=== PATIENT | female | born 1940 | race Caucasian/White ===

== ENCOUNTER → 2017-02-14 | Outpatient (CLI) | payer MEDICARE, BC ==
--- NOTE | 2017-02-14 16:44 | CT ---
EXAMINATION TYPE: CT brain wo con DATE OF EXAM: 02/14/2017 COMPARISON: Previous study dated 4:15 6:15 HISTORY: Visual loss in left eye, half vision (one month ago) CT DLP: 1121 mGycm Automated exposure control for dose reduction was used. FINDINGS: There are mild, generalized changes of sulcal prominence and ventriculomegaly, compatible with mild a trophic change. There is diffuse periventricular white matter lucency, compatible with small vessel i schemic change. There is no acute focal lesion, mass effect or midline shift identified. I do not see evidence of intracranial blood. Utilized portions of the paranasal sinuses and mastoids are clear. The orbits appear normal. IMPRESSION: 1. NO ACUTE INTRACRANIAL ABNORMALITY. 2. MILD DEGENERATIVE CHANGE.
--- NOTE | 2017-02-15 09:10 | US ---
EXAMINATION TYPE: US carotid duplex BILAT DATE OF EXAM: 02/14/2017 COMPARISON: NONE CLINICAL HISTORY: 76-year-old female G45.9 TIA, R20.0 Anesthesia of skin. TECHNIQUE: Carotid duplex ultrasound examination. Indirect Doppler criteria was utilized. FINDINGS: Moderate atherosclerotic calcifications at the right bifurcation. EXAM MEASUREMENTS: RIGHT: Peak Systolic Velocity (PSV) cm/sec ----- Right CCA: 43.9 ----- Right ICA: 104.1 ----- Right ECA: 82.0 ICA/CCA ratio: 2.4 RIGHT: End Diastole cm/sec ----- Right CCA: 7.6 ----- Right ICA: 22.4 ----- Right ECA: 6.3 LEFT: Peak Systolic Velocity (PSV) cm/sec ----- Left CCA: 62.0 ----- Left ICA: 67.2 ----- Left ECA: 45.0 ICA/CCA ratio: 1.12 LEFT: End Diastole cm/sec ----- Left CCA: 12.5 ----- Left ICA: 17.6 ----- Left ECA: 0.0 VERTEBRALS (direction of flow): Right Vertebral: Antegrade Left Vertebral: Antegrade [employer] NOTES: No significant velocity elevations seen on left, on right there is a mild velocity increase with moderate plaque. IMPRESSION: Moderate atherosclerotic calcifications at the right bifurcation. Measurements suggest that there may be a mild proximal right ICA stenosis. No hemodynamically significant ICA stenosis appreciated on ei ther side. Criteria for Assigning % of Stenosis / Diameter reduction (Estimation based on the indirect measurements of the internal carotid artery velocities (ICA PSV). 1. Normal (no stenosis)=ICA PSV < 125 cm/s: ratio < 2.0: ICA EDV<40 cm/s. 2. Less than 50% stenosis=ICA PSV < 125 cm/s: ratio < 2.0: ICA EDV<40 cm/s. 3. 50 to 69% stenosis=ICA PSV of 125 to 230 cm/s: ration 2.0 ? 4.0: ICA EDV 40-100 cm/s. 4. Greater than 70% stenosis to near occlusion= ICA PSV > 230 cm/s: ratio > 4.0: ICA EDV > 100 cm/s. 5. Near occlusion= ICA PSV velocities may be low or undetectable: variable ratio and ICA EDV. 6. Total occlusion=unable to detect flow.
== END | disposition home or self-care (01) ==
LOC: RADUSMAIN 15:37
PROVIDERS: ATTEND Family Medicine
DX: G31.9 Degenerative disease of nervous system, unspecified (principal); I65.29 Occlusion and stenosis of unspecified carotid artery; R20.0 Anesthesia of skin; H53.47 Heteronymous bilateral field defects
CPT/HCPCS: 70450; 93880

== ENCOUNTER → 2017-03-22 | Outpatient (CLI) | payer MEDICARE, BC ==
--- NOTE | 2017-03-22 15:27 | MR ---
EXAMINATION TYPE: MR brain/cspine wo DATE OF EXAM: 03/22/2017 COMPARISON: CT brain February 14, 2017. HISTORY: Cervical spine radiculopathy and history of TIA per order. Left-sided vision changes per pat ient. Left-sided neck pain with pain or weakness in right arm per patient. TECHNIQUE: Multiplanar, multisequence imaging of the cervical spine, brain and brainstem are all perf ormed without IV contrast. FINDINGS: BRAIN: Diffusion weighted images demonstrate no evidence of a recent infarct or other diffusion abnormality. There is no worrisome extra-axial fluid collection. The ventricular system and cisternal spaces are normal in size and appearance. The brain volume is age appropriate. There are scattered foci of T2 h yperintensity seen throughout the deep and periventricular white matter. Lesions are nonspecific in a ppearance and distribution but most likely on basis of product of chronic small vessel ischemic gross e in patient this age. Midline structures demonstrate normal morphology. The craniocervical junction appears within normal limits. Normal vascular flow voids are present. There is 1.7 cm mucous retention cyst or polyp anteri melissa in the inferior right maxillary sinus otherwise paranasal sinuses are grossly clear. Nasal septu m is slightly deviated to right of midline. Both lenses are thinned in the globes. IMPRESSION: Mild to moderate chronic small vessel ischemic change. No evidence of a recent infarct. C-SPINE: FINDINGS: Sagittal images of the cervical spine show the craniocervical junction to appear within nor mal limits. The cervical and upper thoracic spinal cord is normal in course, caliber, and signal. V ertebral alignment is anatomic. The vertebral body heights are normal. There is mild disc space matheus rowing C5-C6 level. There is moderate disc space narrowing C6-C7 level. Mild to moderate spurring is present at these levels. There are posterior disc herniations at C4-C5 through C6-C7 levels effacing anterior thecal sac on sagittal images. The bone marrow signal intensity is within normal limits. Axial images show the C2-C3 level to appear within normal limits. Axial images at C3-C4 level show some left-sided uncovertebral facet degenerative changes and left fo raminal disc protrusion contributing to mild left-sided neural foraminal narrowing, right-sided neura l foramen is patent. Spinal canal is preserved. Axial images at C4-C5 level show focal central disc protrusion effacing anterior thecal sac nearly up to ventral surface of spinal cord on axial image 32, bilateral neural foramina are patent. Axial images at C5-C6 level show broad-based right paracentral disc protrusion effacing anterior thec al sac near axial image 25. There is uncovertebral facet degenerative changes, there is mild to moder ate right greater than left bilateral neural foraminal narrowing at this level identified. Axial images at C6-C7 level show broad-based central disc protrusion effacing anterior thecal sac wit h perhaps mild right-sided neural foraminal narrowing on axial image 19, effacing nearly up to ventra l surface of spinal cord is seen. Left-sided neural foramen is patent. Axial images at C7-T1 level are felt within normal limits. There is 5 mm T2 hypointense lesion left thyroid lobe on axial image 8 possible calcification. Thyroi d gland is overall small in size. IMPRESSION: Multilevel degenerative changes in the cervical spine most prominent at C4-C5 through C6- C7 levels as detailed above.
== END | disposition home or self-care (01) ==
LOC: RADMRIMAIN 13:02
PROVIDERS: ATTEND Psychiatry & Neurology Neurology
DX: M47.22 Other spondylosis with radiculopathy, cervical region (principal); I67.82 Cerebral ischemia; Z86.73 Personal history of transient ischemic attack (TIA), and cerebral infarction without residual deficits
CPT/HCPCS: 70551; 72141

== ENCOUNTER 2017-10-24 12:00 | Inpatient (IN) | payer MEDICARE, BC ==
[2017-10-24] MEDS ORDERED: SODIUM CHLORIDE 0.9% 1,000 ML IV STA ×2 (12:35→14:43)
--- NOTE | 2017-10-24 13:13 | ED ---
General Adult HPI - General Chief complaint: Abdominal Pain Stated complaint: Constipation Time Seen by Provider: 10/24/17 12:23 Source: patient, family, RN notes reviewed, old records reviewed Mode of arrival: ambulatory Limitations: no limitations - History of Present Illness Initial comments: This is a 77-year-old female to the ER for evaluation of abdominal pain. Patient has history of a few abdominal surgeries both hernia and mild hysterectomy, patient has not had a bowel movement for her own 10 days. She has had problem with decreased bowel movements but is currently having decreased appetite, decreased oral intake and complains of some abdominal pain and cramping. Patient denies any fevers - Related Data Home Medications Medication Instructions Recorded Confirmed Benazepril HCl 20 mg PO DAILY 10/24/17 10/24/17 Lovastatin [Mevacor] 40 mg PO HS 10/24/17 10/24/17 Magnesium Hydroxide [Milk of 2,400 mg PO HS PRN 10/24/17 10/24/17 Magnesia] Mupirocin 2% Oint [Bactroban 2% 1 applic TOPICAL BID 10/24/17 10/24/17 Oint] Psyllium Husk 100% [Metamucil 6 gm PO HS 10/24/17 10/24/17 Packet] amLODIPine [Norvasc] 5 mg PO DAILY 10/24/17 10/24/17 Allergies Allergy/AdvReac Type Severity Reaction Status Date / Time No Known Allergies Allergy Verified 10/24/17 12:26 Review of Systems ROS Statement: Those systems with pertinent positive or pertinent negative responses have been documented in the HPI. ROS Other: All systems not noted in ROS Statement are negative. Past Medical History Past Medical History: Cancer, Hypertension Additional Past Medical History / Comment(s): breast History of Any Multi-Drug Resistant Organisms: None Reported Past Surgical History: Breast Surgery, Hernia Repair Additional Past Surgical History / Comment(s): (L)nephrectomy, Breast Cancer left, hiatal hernia Past Psychological History: No Psychological Hx Reported Smoking Status: Never smoker Past Alcohol Use History: None Reported Past Drug Use History: None Reported - Past Family History Mother Family Medical History: Cancer Additional Family Medical History / Comment(s): colon cancer Father Additional Family Medical History / Comment(s): emphysema-non smoker General Exam Limitations: no limitations General appearance: alert, in no apparent distress Head exam: Present: atraumatic, normocephalic, normal inspection Eye exam: Present: normal appearance, PERRL, EOMI. Absent: scleral icterus, conjunctival injection, periorbital swelling ENT exam: Present: normal exam, mucous membranes moist Neck exam: Present: normal inspection. Absent: tenderness, meningismus, lymphadenopathy Respiratory exam: Present: normal lung sounds bilaterally. Absent: respiratory distress, wheezes, rales, rhonchi, stridor Cardiovascular Exam: Present: regular rate, normal rhythm, normal heart sounds. Absent: systolic murmur, diastolic murmur, rubs, gallop, clicks GI/Abdominal exam: Present: soft, distended, tenderness, normal bowel sounds. Absent: guarding, rebound, rigid Extremities exam: Present: normal inspection, full ROM, normal capillary refill. Absent: tenderness, pedal edema, joint swelling, calf tenderness Back exam: Present: normal inspection Neurological exam: Present: alert, oriented X3, CN II-XII intact Psychiatric exam: Present: normal affect, normal mood Skin exam: Present: warm, dry, intact, normal color. Absent: rash Course Vital Signs 10/24/17 10/24/17 10/24/17 12:08 15:00 16:57 Temperature 99.4 F 98.6 F Pulse Rate 92 61 55 L Respiratory 18 20 18 Rate Blood Pressure 125/75 147/67 O2 Sat by Pulse 96 97 98 Oximetry - Reevaluation(s) Reevaluation #1: Patient is without satisfactory bowel movement here in the ER, no significant pain Medical Decision Making - Medical Decision Making 68 female the ER for evaluation of left Sided abdominal pain positive diverticulitis, patient also suffered from constipation, will admit for further evaluation and treatment - Lab Data Result diagrams: 10/26/17 07:05 10/26/17 07:05 Lab Results 10/24/17 10/24/17 10/24/17 Range/Units 13:18 13:18 13:18 WBC 12.1 H (3.8-10.6) k/uL RBC 4.06 (3.80-5.40) m/uL Hgb 12.7 (11.4-16.0) gm/dL Hct 39.1 (34.0-46.0) % MCV 96.2 (80.0-100.0) fL MCH 31.2 (25.0-35.0) pg MCHC 32.4 (31.0-37.0) g/dL RDW 12.5 (11.5-15.5) % Plt Count 260 (150-450) k/uL Neutrophils % 85 % Lymphocytes % 6 % Monocytes % 8 % Eosinophils % 1 % Basophils % 0 % Neutrophils # 10.3 H (1.3-7.7) k/uL Lymphocytes # 0.7 L (1.0-4.8) k/uL Monocytes # 0.9 (0-1.0) k/uL Eosinophils # 0.1 (0-0.7) k/uL Basophils # 0.0 (0-0.2) k/uL Sodium 139 (137-145) mmol/L Potassium 4.3 (3.5-5.1) mmol/L Chloride 101 (98-107) mmol/L Carbon Dioxide 27 (22-30) mmol/L Anion Gap 11 mmol/L BUN 28 H (7-17) mg/dL Creatinine 1.10 H (0.52-1.04) mg/dL Est GFR (MDRD) Af Amer 58 (>60 ml/min/1.73 sqM) Est GFR (MDRD) Non-Af 48 (>60 ml/min/1.73 sqM) Glucose 113 H (74-99) mg/dL Plasma Lactic Acid Titi (0.7-2.0) mmol/L Calcium 9.1 (8.4-10.2) mg/dL Phosphorus 3.5 (2.5-4.5) mg/dL Magnesium 2.2 (1.6-2.3) mg/dL Total Bilirubin 1.0 (0.2-1.3) mg/dL AST 21 (14-36) U/L ALT 23 (9-52) U/L Alkaline Phosphatase 89 (38-126) U/L Total Creatine Kinase 102 (30-135) U/L CK-MB (CK-2) 1.9 (0.0-2.4) ng/mL CK-MB (CK-2) Rel Index 1.9 Total Protein 6.0 L (6.3-8.2) g/dL Albumin 3.4 L (3.5-5.0) g/dL Amylase 41 (30-110) U/L Lipase 88 (23-300) U/L Urine Color Urine Appearance (Clear) Urine pH (5.0-8.0) Ur Specific [place] (1.001-1.035) Urine Protein (Negative) Urine Glucose (UA) (Negative) Urine Ketones (Negative) Urine Blood (Negative) Urine Nitrite (Negative) Urine Bilirubin (Negative) Urine Urobilinogen (<2.0) mg/dL Ur Leukocyte Esterase (Negative) Urine RBC (0-5) /hpf Urine WBC (0-5) /hpf Ur Squamous Epith Cells (0-4) /hpf Hyaline Casts (0-2) /lpf Urine Mucus (None) /hpf 10/24/17 10/24/17 Range/Units 13:18 14:38 WBC (3.8-10.6) k/uL RBC (3.80-5.40) m/uL Hgb (11.4-16.0) gm/dL Hct (34.0-46.0) % MCV (80.0-100.0) fL MCH (25.0-35.0) pg MCHC (31.0-37.0) g/dL RDW (11.5-15.5) % Plt Count (150-450) k/uL Neutrophils % % Lymphocytes % % Monocytes % % Eosinophils % % Basophils % % Neutrophils # (1.3-7.7) k/uL Lymphocytes # (1.0-4.8) k/uL Monocytes # (0-1.0) k/uL Eosinophils # (0-0.7) k/uL Basophils # (0-0.2) k/uL Sodium (137-145) mmol/L Potassium (3.5-5.1) mmol/L Chloride (98-107) mmol/L Carbon Dioxide (22-30) mmol/L Anion Gap mmol/L BUN (7-17) mg/dL Creatinine (0.52-1.04) mg/dL Est GFR (MDRD) Af Amer (>60 ml/min/1.73 sqM) Est GFR (MDRD) Non-Af (>60 ml/min/1.73 sqM) Glucose (74-99) mg/dL Plasma Lactic Acid Titi 1.0 (0.7-2.0) mmol/L Calcium (8.4-10.2) mg/dL Phosphorus (2.5-4.5) mg/dL Magnesium (1.6-2.3) mg/dL Total Bilirubin (0.2-1.3) mg/dL AST (14-36) U/L ALT (9-52) U/L Alkaline Phosphatase (38-126) U/L Total Creatine Kinase (30-135) U/L CK-MB (CK-2) (0.0-2.4) ng/mL CK-MB (CK-2) Rel Index Total Protein (6.3-8.2) g/dL Albumin (3.5-5.0) g/dL Amylase (30-110) U/L Lipase (23-300) U/L Urine Color Yellow Urine Appearance Clear (Clear) Urine pH 5.5 (5.0-8.0) Ur Specific [place] 1.013 (1.001-1.035) Urine Protein Trace H (Negative) Urine Glucose (UA) Negative (Negative) Urine Ketones 1+ H (Negative) Urine Blood Negative (Negative) Urine Nitrite Negative (Negative) Urine Bilirubin Negative (Negative) Urine Urobilinogen <2.0 (<2.0) mg/dL Ur Leukocyte Esterase Small H (Negative) Urine RBC 2 (0-5) /hpf Urine WBC 16 H (0-5) /hpf Ur Squamous Epith Cells 2 (0-4) /hpf Hyaline Casts 4 H (0-2) /lpf Urine Mucus Few H (None) /hpf - Radiology Data Radiology results: report reviewed (Chest x-ray with abdominal surgeries negative, CT of abdomen and pelvis positive for diverticulitis), image reviewed Disposition Clinical Impression: Constipation, Acute diverticulitis Disposition: ADMITTED IP TO THIS [facility] Condition: Fair
--- NOTE | 2017-10-24 13:15 | XR ---
EXAMINATION TYPE: XR abdomen acute w cxr DATE OF EXAM: 10/24/2017 COMPARISON: NONE HISTORY: Constipation and abdominal pain for 1 week TECHNIQUE: Supine, upright, and frontal chest views of the abdomen and chest are obtained. FINDINGS: There is no evidence for pneumoperitoneum. There is a spinal curvature. Arthropathy noted in the bela ulders. No evident airspace disease within the chest. Cardiac mediastinal silhouette, pulmonary vascu larity and jake within normal limits accounting for patient rotation. Surgical clips present in the l eft axilla. Retained fecal debris noted throughout the distribution of the colon. No sizeable air fluid levels. No mass effects are seen. Degenerative disc changes are present in the visualized spine. Calcified gallstones are present in the right upper quadrant. Surgical clips present in the left para spinal location. Surgical clips are present in the left hemipelvis. Atheromatous calcifications are n oted incidentally. IMPRESSION: Correlate for fecal stasis. Postop change. Additional findings above.
[2017-10-24] MEDS ORDERED: RX INFO: IV CONTRAST WAS GIVEN 1 EACH MISC MISCELLANE PRN (13:27)
[2017-10-24 13:47] LABS: Albumin 3.4 g/dL (3.5-5.0); Calcium 9.1 mg/dL (8.4-10.2); Magnesium 2.2 mg/dL (1.6-2.3); Phosphorus 3.5 mg/dL (2.5-4.5); Potassium 4.3 mmol/L (3.5-5.1)
[2017-10-24 13:57] LABS: Basophils % (A) 0 %; Eosinophils # (A) 0.1 k/uL (0-0.7); Eosinophils % (A) 1 %; HCT 39.1 % (34.0-46.0); HGB 12.7 gm/dL (11.4-16.0); Lymphocytes # (A) 0.7 k/uL (1.0-4.8); Lymphocytes % (A) 6 %; MCH 31.2 pg (25.0-35.0); MCHC 32.4 g/dL (31.0-37.0); MCV 96.2 fL (80.0-100.0); Mean Platelet Volume 7.8; Monocytes # (A) 0.9 k/uL (0-1.0); Monocytes % (A) 8 %; Neutrophils # (A) 10.3 k/uL (1.3-7.7); Neutrophils % (A) 85 %; Platelet Count 260 k/uL (150-450); RBC 4.06 m/uL (3.80-5.40); RDW 12.5 % (11.5-15.5); WBC 12.1 k/uL (3.8-10.6)
[2017-10-24 14:08] LABS: Creatine Kinase MB 1.9 ng/mL (0.0-2.4)
[2017-10-24 14:48] LABS: Appearance,Urine Clear (Clear); Bilirubin,Urine Negative (Negative); Blood,Urine Negative (Negative); Color,Urine Yellow; Glucose,Urine (UA) Negative (Negative); Hyaline Casts,Urine 4 /lpf (0-2); Ketones,Urine 1+ (Negative); Leukocyte Esterase,Urine Small (Negative); Mucus,Urine Few /hpf; Nitrite,Urine Negative (Negative); PH, Urine 5.5 (5.0-8.0); Protein,Urine Trace (Negative); RBC,Urine 2 /hpf (0-5); Specific Gravity,Urine 1.013 (1.001-1.035); Squamous Epithelial Cell,Urine 2 /hpf (0-4); Urobilinogen,Urine <2.0 mg/dL (<2.0); WBC,Urine 16 /hpf (0-5)
--- NOTE | 2017-10-24 15:18 | CT ---
EXAMINATION TYPE: CT abdomen pelvis w con DATE OF EXAM: 10/24/2017 COMPARISON: NONE HISTORY: 77-year-old female Constipation x 1 week. TECHNIQUE: Contiguous axial scanning of the abdomen and pelvis following administration of 100 ml Omn ipaque 300 IV contrast. Delayed images through the kidneys and coronal/sagittal reconstructions perf ormed. CT DLP: 465.9 mGycm Automated exposure control for dose reduction was used. FINDINGS: Heart upper limits of normal in size without pericardial effusion. Postsurgical changes within the le ft breast likely relating to lumpectomy. Lung bases clear without pleural effusion. A couple hypodense lesions anterior left liver lobe, largest measuring 1.2 cm. These are too small fo r accurate CT characterization, probable cysts. No biliary ductal dilatation appreciated. Portal veno us system is patent. There is a small diverticulum of the second portion of the duodenum projecting i nto the pancreatic head region. Gallbladder is mildly hydropic measuring 4.4 cm wide and contains layering calculi measuring up to 1. 1 cm. Adrenal glands within normal limits. Patient is status post left nephrectomy. Right kidney, spleen, and atrophic pancreas show no gross abnormality. No dilated small bowel, free fluid, or free air. Moderate atherosclerotic calcifications within the abdominal aorta and iliac arteries. The some small bowel postsurgical changes in the mid and right abdomen anteriorly. Moderate to large stool burden. Mild free fluid in the left paracolic gutter and also within the pelv is. Surgical clips in the left side of the pelvis. Large amount of stool in the sigmoid colon and rectum. There appears to be an inflamed large diverticulum projecting upward from the proximal sigmoid, axial image 55 and coronal image 37. There is additional sigmoid diverticulosis with wall thickening and i nflammation extending to involve the distal sigmoid as well. No convincing abscess is seen though the re is extensive surrounding inflammatory fat stranding causing some limitation in assessment. Uterus surgically absent. Neither ovary is clearly identified. Bones: Degenerative disc disease within the visualized spine. No osseous destructive process. IMPRESSION: 1. SIGMOID DIVERTICULOSIS. THERE IS A LARGE INFLAMED DIVERTICULUM ALONG THE PROXIMAL SIGMOID WITH WAL L THICKENING AND SURROUNDING INFLAMMATION EXTENDING TO THE DISTAL SIGMOID WELL. FINDINGS SUGGEST A CUTE DIVERTICULITIS WITH MODERATE TO SEVERE INFLAMMATION. NO CONVINCING ABSCESS AT THIS TIME. NO EVID ENCE FOR FREE AIR. IF THERE IS NO IMPROVEMENT WITH MEDICAL MANAGEMENT, SHORT INTERVAL FOLLOW-UP CAN B E PERFORMED. RECOMMEND DIRECT VISUALIZATION AFTER SUCCESSFUL TREATMENT. 2. MILD LEFT UPPER QUADRANT AND PELVIC ASCITES ARE LIKELY REACTIVE. 3. MODERATE TO LARGE STOOL BURDEN. 4. CHOLELITHIASIS WITH MILDLY HYDROPIC GALLBLADDER. THIS LIKELY RELATES TO FASTING STATE. IF RIGHT UP PER QUADRANT PAIN OR CONCERN FOR EARLY ACUTE CHOLECYSTITIS, FOLLOW-UP ULTRASOUND OR HIDA SCAN. 5. PRIOR SMALL BOWEL RESECTIONS AND RE-ANASTOMOSES, SURGICAL CLIPS ALONG THE LEFT SIDE OF THE PELVIS, PRIOR LEFT NEPHRECTOMY, AND LEFT BREAST LUMPECTOMY.
[2017-10-24] MEDS ORDERED: SENNOSIDES-DOCUSATE SODIUM 1 EACH TAB PO STA (15:20)
[2017-10-24] MEDS ORDERED: LEVOFLOXACIN 750MG-D5W PMX 750 MG in DEXTROSE/WATER 1 150ML.BAG IVPB STA (15:36)
[2017-10-24] MEDS ORDERED: ONDANSETRON 4 MG/2 ML VIAL IVP PRN (15:36)
[2017-10-24] MEDS ORDERED: SODIUM CHLORIDE 0.9% 1,000 ML IV ONE (16:16)
[2017-10-24] MEDS: metroNIDAZOLE-NS PMX 500 MG in SALINE 1 100ML.BAG IVPB STA ×2 (17:35→18:06)
--- NOTE | 2017-10-24 18:59 | P.GSCN ---
History of Present Illness Consult date: 10/24/17 Reason for Consult: Abdominal pain History of present illness: Patient is known to our service from a history of previous breast cancer and also a colonic perforation approximately 16 years ago. Patient has some degree of dementia. She is not the best historian although the patient's 2 daughters are present to help with the history. The patient lives at home. She was having diarrhea up until proximally 7-10 days ago. She then took Imodium for the symptoms. Since that time she has had minimal if any stool output. She is passing a small volume of flatus. She passed gas earlier today. She felt more more bloated with increasing diffuse abdominal pain and went to the PCP with those complaints. She was sent to the hospital emergency department because of her abdominal examination. Denies fevers or chills. White blood cell count is 12. CAT scan abdomen and pelvis revealed constipation with some inflammatory changes in the proximal sigmoid colon where there is a prominent slightly larger than normal diverticulum with a thickened wall. The patient was admitted with diverticulitis as her primary diagnosis and constipation. She was given an enema while in the emergency department with some results. She appears relatively comfortable. Pain was more severe earlier. She believes her last colonoscopy was 10-15 years ago. Denies rectal bleeding or melena. Review of Systems The patient denies any acute changes in vision or hearing, no dysphagia or odynophagia, no chest pain or shortness of breath, no dysuria or hematuria, no headache, no runny nose, no rectal bleeding or melena, no unexplained weight loss Past Medical History Past Medical History: Cancer, Hyperlipidemia, Hypertension, Osteoarthritis (OA) , Pneumonia Additional Past Medical History / Comment(s): hx of lt breast cancer and lt kidney ca-sx and radiation . past fall 2014 fx nose(sx), constipation. History of Any Multi-Drug Resistant Organisms: None Reported Past Surgical History: Breast Surgery, Hernia Repair, Hysterectomy, Tonsillectomy Additional Past Surgical History / Comment(s): (L)nephrectomy, left breast lumpectomy, hiatal hernia, septoplasty,?bladder sx,varicose vein stripping, repair of perforated illeum, inc hernia repair w/ mesh. Past Anesthesia/Blood Transfusion Reactions: Motion Sickness, Postoperative Nausea & Vomiting (PONV) Additional Past Anesthesia/Blood Transfusion Reaction / Comm: after hernia sx pt coded coming out of sx-ended up on vent in icu for few days Smoking Status: Never smoker - Past Family History Mother Family Medical History: Cancer Additional Family Medical History / Comment(s): colon cancer Father Additional Family Medical History / Comment(s): emphysema-non smoker Medications and Allergies Home Medications and Allergies Comment(s): Physical exam: General: Well-developed, well-nourished, in no distress HEENT: Normocephalic, sclerae nonicteric Abdomen: Mild diffuse tenderness increase in the left lower quadrant, distention Extremities: No edema Neuro: Alert and oriented Home Medications Medication Instructions Recorded Confirmed Type Benazepril HCl 20 mg PO DAILY 10/24/17 10/24/17 History Lovastatin [Mevacor] 40 mg PO HS 10/24/17 10/24/17 History Magnesium Hydroxide [Milk of 2,400 mg PO HS PRN 10/24/17 10/24/17 History Magnesia] Mupirocin 2% Oint [Bactroban 2% 1 applic TOPICAL BID 10/24/17 10/24/17 History Oint] Psyllium Husk 100% [Metamucil 6 gm PO HS 10/24/17 10/24/17 History Packet] amLODIPine [Norvasc] 5 mg PO DAILY 10/24/17 10/24/17 History Allergies Allergy/AdvReac Type Severity Reaction Status Date / Time No Known Allergies Allergy Verified 10/24/17 12:26 Surgical - Exam Vital Signs Temp Pulse Resp BP Pulse Ox 99.4 F 92 18 125/75 96 10/24/17 12:08 10/24/17 12:08 10/24/17 12:08 10/24/17 12:08 10/24/17 12:08 Results - Labs 10/24/17 13:18 10/24/17 13:18 Abnormal Lab Results - Last 24 Hours (Table) 10/24/17 10/24/17 10/24/17 Range/Units 13:18 13:18 14:38 WBC 12.1 H (3.8-10.6) k/uL Neutrophils # 10.3 H (1.3-7.7) k/uL Lymphocytes # 0.7 L (1.0-4.8) k/uL BUN 28 H (7-17) mg/dL Creatinine 1.10 H (0.52-1.04) mg/dL Glucose 113 H (74-99) mg/dL Total Protein 6.0 L (6.3-8.2) g/dL Albumin 3.4 L (3.5-5.0) g/dL Urine Protein Trace H (Negative) Urine Ketones 1+ H (Negative) Ur Leukocyte Esterase Small H (Negative) Urine WBC 16 H (0-5) /hpf Hyaline Casts 4 H (0-2) /lpf Urine Mucus Few H (None) /hpf Diabetes panel 10/24/17 Range/Units 13:18 Sodium 139 (137-145) mmol/L Potassium 4.3 (3.5-5.1) mmol/L Chloride 101 (98-107) mmol/L Carbon Dioxide 27 (22-30) mmol/L BUN 28 H (7-17) mg/dL Creatinine 1.10 H (0.52-1.04) mg/dL Glucose 113 H (74-99) mg/dL Calcium 9.1 (8.4-10.2) mg/dL AST 21 (14-36) U/L ALT 23 (9-52) U/L Alkaline Phosphatase 89 (38-126) U/L Total Protein 6.0 L (6.3-8.2) g/dL Albumin 3.4 L (3.5-5.0) g/dL Calcium panel 10/24/17 Range/Units 13:18 Calcium 9.1 (8.4-10.2) mg/dL Phosphorus 3.5 (2.5-4.5) mg/dL Albumin 3.4 L (3.5-5.0) g/dL Pituitary panel 10/24/17 Range/Units 13:18 Sodium 139 (137-145) mmol/L Potassium 4.3 (3.5-5.1) mmol/L Chloride 101 (98-107) mmol/L Carbon Dioxide 27 (22-30) mmol/L BUN 28 H (7-17) mg/dL Creatinine 1.10 H (0.52-1.04) mg/dL Glucose 113 H (74-99) mg/dL Calcium 9.1 (8.4-10.2) mg/dL Adrenal panel 10/24/17 Range/Units 13:18 Sodium 139 (137-145) mmol/L Potassium 4.3 (3.5-5.1) mmol/L Chloride 101 (98-107) mmol/L Carbon Dioxide 27 (22-30) mmol/L BUN 28 H (7-17) mg/dL Creatinine 1.10 H (0.52-1.04) mg/dL Glucose 113 H (74-99) mg/dL Calcium 9.1 (8.4-10.2) mg/dL Total Bilirubin 1.0 (0.2-1.3) mg/dL AST 21 (14-36) U/L ALT 23 (9-52) U/L Alkaline Phosphatase 89 (38-126) U/L Total Protein 6.0 L (6.3-8.2) g/dL Albumin 3.4 L (3.5-5.0) g/dL Assessment and Plan (1) Acute diverticulitis Narrative/Plan: Clinical scenario discussed in detail with the patient and her daughters. The CAT scan films were shown to them. I also discussed this consult with Dr. Vargas will be resuming coverage tomorrow. Continue nothing by mouth except for ice chips and popsicles. Encouraged increase ambulation. No cathartics or further enemas at this time. Continue broad-spectrum antibiotics. Advise colonoscopy in 6-8 weeks assuming the patient improves clinically. Current Visit: Yes Status: Acute Code(s): K57.92 - DVTRCLI OF INTEST, PART UNSP, W/O PERF OR ABSCESS W/O BLEED SNOMED Code(s): 235705834
[2017-10-24] MEDS: ATORVASTATIN 10 MG TAB PO SCH (21:21)
[2017-10-24] MEDS: amLODIPine 5 MG TAB PO SCH (21:21)
[2017-10-24] MEDS: LISINOPRIL 20 MG TAB PO SCH (21:21)
[2017-10-25] MEDS: MUPIROCIN 2% OINT 22 GM TUBE TOPICAL SCH ×3 (00:47→20:35)
[2017-10-25] MEDS: metroNIDAZOLE-NS PMX 500 MG in SALINE 1 100ML.BAG IVPB SCH ×3 (01:03→15:00)
[2017-10-25 07:20] LABS: Basophils % (A) 0 %; Eosinophils # (A) 0.1 k/uL (0-0.7); Eosinophils % (A) 1 %; HCT 37.4 % (34.0-46.0); Lymphocytes # (A) 0.8 k/uL (1.0-4.8); Lymphocytes % (A) 8 %; MCH 30.7 pg (25.0-35.0); MCV 95.9 fL (80.0-100.0); Mean Platelet Volume 7.5; Monocytes # (A) 0.8 k/uL (0-1.0); Monocytes % (A) 8 %; Neutrophils # (A) 8.3 k/uL (1.3-7.7); Neutrophils % (A) 81 %; Platelet Count 244 k/uL (150-450); RDW 12.5 % (11.5-15.5); WBC 10.3 k/uL (3.8-10.6)
[2017-10-25 07:43] LABS: Anion Gap 9 mmol/L; Blood Urea Nitrogen 14 mg/dL (7-17); Calcium 8.7 mg/dL (8.4-10.2); Carbon Dioxide 27 mmol/L (22-30); Chloride 104 mmol/L (98-107); Glucose 84 mg/dL (74-99); Potassium 4.2 mmol/L (3.5-5.1); Sodium 140 mmol/L (137-145)
[2017-10-25] MEDS: LISINOPRIL 20 MG TAB PO SCH (08:36)
[2017-10-25] MEDS: amLODIPine 5 MG TAB PO SCH (08:36)
[2017-10-25] MEDS: PANTOPRAZOLE 40 MG/10 ML VIAL IVP SCH (09:19)
[2017-10-25] MEDS: ENOXAPARIN 40 MG/0.4 ML SYRINGE SQ SCH (09:19)
--- NOTE | 2017-10-25 12:01 | P.PN ---
Subjective Progress Note Date: 10/25/17 Principal diagnosis: Diverticulitis The patient is a 77-year-old female admitted with diverticulitis found on CT. No previous episodes of diverticulitis. No colonoscopy for greater than 10 years. The patient was examined in the patient's daughter was at bedside. The patient had been having diarrhea up to about a week ago. She then took some Imodium. She's had constipation since that time. SHe did have a bowel movement yesterday with a enema. Feeling better today. No nausea or vomiting. Objective - Vital Signs Vital signs: Vital Signs Temp 98.5 F 10/25/17 08:34 Pulse 64 10/25/17 08:34 Resp 16 10/25/17 08:34 BP 166/72 10/25/17 08:34 Pulse Ox 95 10/25/17 08:34 Intake & Output 10/24/17 10/25/17 10/25/17 18:59 06:59 18:59 Intake Total 510 Balance 510 Weight 63.095 kg 63.095 kg Intake: Intake, IV Titration 500 Amount Sodium Chloride 0.9% 1, 500 000 ml @ 100 mls/hr IV . Q10H ONE Rx#:[id number] Oral 10 Other: Voiding Method Toilet Toilet # Voids 3 1 # Bowel Movements 0 - Constitutional General appearance: Present: cooperative, no acute distress - EENT ENT: Present: hearing grossly normal - Respiratory Respiratory: bilateral: CTA - Cardiovascular Rhythm: regular - Gastrointestinal General gastrointestinal: Present: distended (Softly distended), normal bowel sounds, tenderness (Minimal left lower quadrant without guarding, rebound, peritoneal signs or mass) - Labs CBC & Chem 7: 10/25/17 06:48 10/25/17 06:48 Labs: Abnormal Lab Results - Last 24 Hours (Table) 10/24/17 10/24/17 10/24/17 Range/Units 13:18 13:18 14:38 WBC 12.1 H (3.8-10.6) k/uL Neutrophils # 10.3 H (1.3-7.7) k/uL Lymphocytes # 0.7 L (1.0-4.8) k/uL BUN 28 H (7-17) mg/dL Creatinine 1.10 H (0.52-1.04) mg/dL Glucose 113 H (74-99) mg/dL Total Protein 6.0 L (6.3-8.2) g/dL Albumin 3.4 L (3.5-5.0) g/dL Urine Protein Trace H (Negative) Urine Ketones 1+ H (Negative) Ur Leukocyte Esterase Small H (Negative) Urine WBC 16 H (0-5) /hpf Hyaline Casts 4 H (0-2) /lpf Urine Mucus Few H (None) /hpf 10/25/17 Range/Units 06:48 WBC (3.8-10.6) k/uL Neutrophils # 8.3 H (1.3-7.7) k/uL Lymphocytes # 0.8 L (1.0-4.8) k/uL BUN (7-17) mg/dL Creatinine (0.52-1.04) mg/dL Glucose (74-99) mg/dL Total Protein (6.3-8.2) g/dL Albumin (3.5-5.0) g/dL Urine Protein (Negative) Urine Ketones (Negative) Ur Leukocyte Esterase (Negative) Urine WBC (0-5) /hpf Hyaline Casts (0-2) /lpf Urine Mucus (None) /hpf Microbiology - Last 24 Hours (Table) 10/24/17 14:38 Urine Culture - Preliminary Urine,Voided - Imaging and Cardiology CT scan - abdomen: report reviewed, image reviewed Assessment and Plan (1) Acute diverticulitis Current Visit: Yes Status: Acute Code(s): K57.92 - DVTRCLI OF INTEST, PART UNSP, W/O PERF OR ABSCESS W/O BLEED SNOMED Code(s): 013084402 (2) Constipation Current Visit: Yes Status: Acute Code(s): K59.00 - CONSTIPATION, UNSPECIFIED SNOMED Code(s): 10761588 Plan: The patient feels better today. The daughter thinks her mother appears much more comfortable. We'll start her on some clear liquids. Continue the IV antibiotics. Serial exams. If she is doing well, was we will advance her diet tomorrow. Will likely need a colonoscopy in 6-8 weeks.
[2017-10-25] MEDS ORDERED: IBUPROFEN 600 MG TAB PO PRN (13:32)
--- NOTE | 2017-10-25 14:14 | P.HPIM ---
History of Present Illness H&P Date: 10/25/17 Chief Complaint: Abdominal pain, constipation 77-year-old female who presented to the emergency room with a chief complaint of abdominal pain and constipation. The patient was having diarrhea about a week and at that time she took antidiarrheals. She began to get constipated and was unable to have a bowel movement for several days. She went to her PCP, Dr. Calderón, earlier this week and was prescribed a few different medications for constipation. The patient states her abdominal pain increased her severity and she decided to come to the ER for evaluation. Denies shortness of breath or cough. Denies chest pain or pressure. Denies nausea or vomiting. Denies fever or chills. The patient has a history of left breast cancer and left kidney cancer, hyperlipidemia, hypertension, and osteoarthritis. Acute abdominal series: Correlate for fecal stasis CT of abdomen and pelvis: Sigmoid diverticulosis, large inflamed diverticulum along the proximal sigmoid with wall thickening and surrounding inflammation extending to the distal sigmoid as well. Findings suggest acute diverticulitis with moderate to severe inflammation. Mild left upper quadrant and pelvic ascites are likely reactive. Moderate to large stool burden. Cholelithiasis with mildly hydropic gallbladder. Laboratory data: WBC 12.1. Hemoglobin 12.7. Platelet count 244. Sodium 139. Potassium 4.3. BUN 28. Creatinine 1.1. Lactic acid: 1.0 Urinalysis reveals: Trace proteinuria, 1+ ketonuria, small leukocyte esterase The patient was admitted to the hospital under the care of Dr. Calderón. Consultations were placed to general surgery. Review of Systems GENERAL: Patient denies fever. Denies chills. EYES: Denies blurred vision. Denies vision changes. Denies eye pain. EARS, NOSE, MOUTH, & THROAT: Denies headache. Denies sore throat. Denies ear pain. RESPIRATORY: Denies cough. Denies shortness of breath. Denies sputum production. Denies hemoptysis. CARDIOVASCULAR: Denies chest pain or pressure. Denies palpitations. Denies arrhythmias. GASTROINTESTINAL: Positive for abdominal pain. Positive for constipation. Denies nausea. Denies vomiting. Denies heartburn. Denies blood in the stool. GENITOURINARY: Denies urinary frequency. Denies burning. Denies dysuria. Denies cloudy urine. Denies blood in the urine. MUSCULOSKELETAL: Denies myalgias. Denies joint swelling. Denies decreased range of motion beyond patients baseline. INTEGUMENTARY: Denies pruitis. Denies rash. PSYCHIATRIC: Denies suicidal or homicial ideations. ENDOCRINE: Denies weight change. Denies polydipsia. Denies polyuria. HEMATOLOGIC: Denies bleeding disorders. Past Medical History Past Medical History: Cancer, Hyperlipidemia, Hypertension, Osteoarthritis (OA) , Pneumonia Additional Past Medical History / Comment(s): hx of lt breast cancer and lt kidney ca-sx and radiation . past fall 2014 fx nose(sx), constipation. History of Any Multi-Drug Resistant Organisms: None Reported Past Surgical History: Breast Surgery, Hernia Repair, Hysterectomy, Tonsillectomy Additional Past Surgical History / Comment(s): (L)nephrectomy, left breast lumpectomy, hiatal hernia, septoplasty,?bladder sx,varicose vein stripping, repair of perforated illeum, inc hernia repair w/ mesh. Past Anesthesia/Blood Transfusion Reactions: Motion Sickness, Postoperative Nausea & Vomiting (PONV) Additional Past Anesthesia/Blood Transfusion Reaction / Comment(s): after hernia sx pt coded coming out of sx-ended up on vent in icu for few days Smoking Status: Never smoker - Past Family History Mother Family Medical History: Cancer Additional Family Medical History / Comment(s): colon cancer Father Additional Family Medical History / Comment(s): emphysema-non smoker Medications and Allergies Home Medications Medication Instructions Recorded Confirmed Type Benazepril HCl 20 mg PO DAILY 10/24/17 10/24/17 History Lovastatin [Mevacor] 40 mg PO HS 10/24/17 10/24/17 History Magnesium Hydroxide [Milk of 2,400 mg PO HS PRN 10/24/17 10/24/17 History Magnesia] Mupirocin 2% Oint [Bactroban 2% 1 applic TOPICAL BID 10/24/17 10/24/17 History Oint] Psyllium Husk 100% [Metamucil 6 gm PO HS 10/24/17 10/24/17 History Packet] amLODIPine [Norvasc] 5 mg PO DAILY 10/24/17 10/24/17 History Allergies Allergy/AdvReac Type Severity Reaction Status Date / Time No Known Allergies Allergy Verified 10/24/17 12:26 Physical Exam Vitals: Vital Signs Temp Pulse Pulse Pulse Resp BP BP 10/25/17 08:34 98.5 F 64 16 166/72 10/25/17 08:00 16 10/25/17 01:39 98.4 F 74 16 141/74 10/25/17 00:00 76 16 10/24/17 20:52 98.4 F 61 16 167/72 10/24/17 17:30 97.8 F 65 16 178/79 10/24/17 16:57 98.6 F 55 L 18 10/24/17 15:00 61 20 147/67 Pulse Ox 10/25/17 08:34 95 10/25/17 08:00 10/25/17 01:39 95 10/25/17 00:00 10/24/17 20:52 98 10/24/17 17:30 100 10/24/17 16:57 98 10/24/17 15:00 97 Intake and Output 10/24/17 10/25/17 10/25/17 22:59 06:59 14:59 Intake Total 300 210 Balance 300 210 Intake: Intake, IV Titration 300 200 Amount Sodium Chloride 0.9% 1, 300 200 000 ml @ 100 mls/hr IV . Q10H ONE Rx#:[id number] Oral 10 Other: Voiding Method Toilet Toilet # Voids 3 1 # Bowel Movements 0 Weight 63.095 kg Patient Weight 10/26/17 06:59 Weight 63.095 kg GENERAL: This is a 77-year-old female in no apparent distress at the time of examination. Pleasant and cooperative. HEENT: Head is atraumatic, normocephalic. Pupils are equal, round, and reactive to light. Sclerae anicteric. Conjunctivae are clear. Mucus membranes of the mouth are moist. Neck is supple. RESPIRATORY: Clear to ausculation. No wheezes, rales, or rhonchi. No use of accessory muscles. Patient maintaining oxygen saturation greater than 92%. No chest wall tenderness is noted on palpation or with deep breathing. CARDIOVASCULAR: Regular rate and rhythm. S1 and S2 noted. No systolic or diastolic murmur auscultated. No JVD noted. No S3 or S4 noted. GASTROINTESTINAL: Abdomen distended but soft. Bowel sounds auscultated x 4 quadrants. Slight pain or tenderness noted upon palpation. INTEGUMENTARY: No cyanosis. No jaundice. No rashes noted. No cellulitis noted. EXTREMITIES: 2+ peripheral pulses. No evidence of peripheral edema. No calf tenderness noted. NEUROLOGIC: Cranial nerves II-XII intact. PSYCHIATRIC: Awake, alert, and oriented X 3. Appropriate affect. Intact judgement and insight. Results CBC & Chem 7: 10/25/17 06:48 10/25/17 06:48 Labs: Abnormal Lab Results - Last 24 Hours (Table) 10/24/17 10/24/17 10/24/17 Range/Units 13:18 13:18 14:38 WBC 12.1 H (3.8-10.6) k/uL Neutrophils # 10.3 H (1.3-7.7) k/uL Lymphocytes # 0.7 L (1.0-4.8) k/uL BUN 28 H (7-17) mg/dL Creatinine 1.10 H (0.52-1.04) mg/dL Glucose 113 H (74-99) mg/dL Total Protein 6.0 L (6.3-8.2) g/dL Albumin 3.4 L (3.5-5.0) g/dL Urine Protein Trace H (Negative) Urine Ketones 1+ H (Negative) Ur Leukocyte Esterase Small H (Negative) Urine WBC 16 H (0-5) /hpf Hyaline Casts 4 H (0-2) /lpf Urine Mucus Few H (None) /hpf 10/25/17 Range/Units 06:48 WBC (3.8-10.6) k/uL Neutrophils # 8.3 H (1.3-7.7) k/uL Lymphocytes # 0.8 L (1.0-4.8) k/uL BUN (7-17) mg/dL Creatinine (0.52-1.04) mg/dL Glucose (74-99) mg/dL Total Protein (6.3-8.2) g/dL Albumin (3.5-5.0) g/dL Urine Protein (Negative) Urine Ketones (Negative) Ur Leukocyte Esterase (Negative) Urine WBC (0-5) /hpf Hyaline Casts (0-2) /lpf Urine Mucus (None) /hpf Microbiology - Last 24 Hours (Table) 10/24/17 14:38 Urine Culture - Preliminary Urine,Voided Thrombosis Risk Factor Assmnt - Choose All That Apply Any of the Below Risk Factors Present?: Yes Other Risk Factors: Yes Each Risk Factor Represents 2 Points: Malignancy Each Risk Factor Represents 3 Points: Age 75 years or older Other congenital or acquired thrombophilia - If yes, enter type in comment: No Thrombosis Risk Factor Assessment Total Risk Factor Score: 5 Thrombosis Risk Factor Assessment Level: High Risk Assessment and Plan Plan: ASSESSMENT: Acute diverticulitis, present on admission Abdominal pain secondary to constipation and diverticulitis History of diverticulosis Asymptomatic bacteruria, culture pending Essential hypertension Hyperlipidemia History of left breast and left kidney cancer PLAN: General surgery on consult. Appreciate recommendations and input Continue Levaquin and Flagyl Patient started on clear liquids today per surgery Await results of urine culture Home meds as appropriate Monitor labs Activity as tolerated GI prophylaxis: Protonix 40 mg IV Daily DVT prophylaxis: Lovenox 40mg Subcu daily Monitor vital signs and address as appropriate Discharge planning: Patient to return home when stable Further recommendations pending patient's course Nurse practitioner note has been reviewed by physician. Signing provider agrees with the documented findings, assessment, and plan of care.
[2017-10-25] MEDS: ACETAMINOPHEN TAB 325 MG TAB PO PRN (14:57)
[2017-10-25] MEDS: SODIUM CHLORIDE 0.9% 1,000 ML IV SCH (14:57)
[2017-10-25] MEDS: LEVOFLOXACIN 750MG-D5W PMX 750 MG in DEXTROSE/WATER 1 150ML.BAG IVPB SCH (16:08)
[2017-10-25] MEDS ORDERED: LEVOFLOXACIN 750MG-D5W PMX 750 MG in DEXTROSE/WATER 1 150ML.BAG IVPB SCH (18:00)
[2017-10-25] MEDS: ATORVASTATIN 10 MG TAB PO SCH (20:34)
[2017-10-26] MEDS: NYSTATIN 100,000 UNIT/ML SUSP 500,000 UNIT/5 ML CUP PO SCH ×5 (01:16→21:33)
[2017-10-26] MEDS: metroNIDAZOLE-NS PMX 500 MG in SALINE 1 100ML.BAG IVPB SCH ×3 (01:19→15:18)
[2017-10-26] MEDS: SODIUM CHLORIDE 0.9% 1,000 ML IV SCH ×2 (05:27→12:14)
[2017-10-26 07:40] LABS: Anion Gap 9 mmol/L; Blood Urea Nitrogen 11 mg/dL (7-17); Calcium 8.6 mg/dL (8.4-10.2); Carbon Dioxide 26 mmol/L (22-30); Chloride 104 mmol/L (98-107); Glucose 89 mg/dL (74-99); Potassium 3.7 mmol/L (3.5-5.1); Sodium 139 mmol/L (137-145)
[2017-10-26 07:55] LABS: Basophils % (A) 0 %; Eosinophils # (A) 0.1 k/uL (0-0.7); Eosinophils % (A) 2 %; HCT 38.8 % (34.0-46.0); HGB 12.4 gm/dL (11.4-16.0); Lymphocytes # (A) 0.9 k/uL (1.0-4.8); Lymphocytes % (A) 9 %; MCH 30.5 pg (25.0-35.0); MCHC 31.9 g/dL (31.0-37.0); MCV 95.7 fL (80.0-100.0); Mean Platelet Volume 7.5; Monocytes # (A) 0.7 k/uL (0-1.0); Monocytes % (A) 7 %; Neutrophils # (A) 7.6 k/uL (1.3-7.7); Neutrophils % (A) 81 %; Platelet Count 247 k/uL (150-450); RBC 4.05 m/uL (3.80-5.40); RDW 12.3 % (11.5-15.5); WBC 9.5 k/uL (3.8-10.6)
[2017-10-26] MEDS: MUPIROCIN 2% OINT 22 GM TUBE TOPICAL SCH ×2 (08:11→21:32)
[2017-10-26] MEDS: PANTOPRAZOLE 40 MG/10 ML VIAL IVP SCH (08:11)
[2017-10-26] MEDS: amLODIPine 5 MG TAB PO SCH (08:11)
[2017-10-26] MEDS: ENOXAPARIN 40 MG/0.4 ML SYRINGE SQ SCH (08:12)
[2017-10-26] MEDS: LISINOPRIL 20 MG TAB PO SCH (08:12)
--- NOTE | 2017-10-26 09:19 | P.PN ---
Subjective Progress Note Date: 10/26/17 Principal diagnosis: Diverticulitis The patient is seen on rounds. She is still having some intermittent lower abdominal pain. Passing some gas. Had a very small BM yesterday. She is taking some clear liquids, she still does not have much of an appetite so only took small amounts. At this point she does not want any more to eat. She is bloating easily. Objective - Vital Signs Vital signs: Vital Signs Temp 98.5 F 10/26/17 06:39 Pulse 64 10/26/17 06:39 Resp 16 10/26/17 06:59 BP 168/81 10/26/17 06:39 Pulse Ox 93 L 10/26/17 06:39 Intake & Output 10/25/17 10/26/17 10/26/17 18:59 06:59 18:59 Intake Total 100 Balance 100 Weight 63.095 kg 63.095 kg Intake: Oral 100 Other: Voiding Method Toilet Toilet # Voids 1 1 # Bowel Movements 2 2 - Constitutional General appearance: Present: cooperative, no acute distress - Respiratory Respiratory: bilateral: CTA - Cardiovascular Rhythm: regular - Gastrointestinal General gastrointestinal: Present: distended (And tympanitic. Slightly more distended than yesterday.), normal bowel sounds, tenderness (Across the lower abdomen. No peritoneal signs.) - Labs CBC & Chem 7: 10/26/17 07:05 10/26/17 07:05 Labs: Abnormal Lab Results - Last 24 Hours (Table) 10/26/17 Range/Units 07:05 Lymphocytes # 0.9 L (1.0-4.8) k/uL Microbiology - Last 24 Hours (Table) 10/24/17 14:38 Urine Culture - Final Urine,Voided Assessment and Plan (1) Acute diverticulitis Current Visit: Yes Status: Acute Code(s): K57.92 - DVTRCLI OF INTEST, PART UNSP, W/O PERF OR ABSCESS W/O BLEED SNOMED Code(s): 784553629 (2) Constipation Current Visit: Yes Status: Acute Code(s): K59.00 - CONSTIPATION, UNSPECIFIED SNOMED Code(s): 68203133 Plan: She is slowly improving. She's not having any fevers and the white count is normal. Her abdomen is fairly distended and she does not appetite so we will keep her on clear liquids today. Continue IV antibiotics. We'll give her a suppository to gently try to stimulate the bowel from below. Anticipate another couple of days before she is ready for discharge. Progressing slowly
[2017-10-26] MEDS ORDERED: BISACODYL 10 MG SUPP RECTAL STA (09:21)
[2017-10-26] MEDS: ACETAMINOPHEN TAB 325 MG TAB PO PRN (13:46)
[2017-10-26] MEDS: LEVOFLOXACIN 750MG-D5W PMX 750 MG in DEXTROSE/WATER 1 150ML.BAG IVPB SCH (16:18)
--- NOTE | 2017-10-26 17:43 | PN ---
PROGRESS NOTE DATE OF SERVICE: 10/26/2017 Patient resting comfortably in bed, claims her abdomen is slightly more distended compared to yesterday, but there is no abdominal pain. She has been has been passing gas and she did have a small bowel movement yesterday. She is taking clear liquids without any abdominal pain, but she does not have much of an appetite. VITAL SIGNS: Temperature 98.5, pulse 64, respirations 16, blood pressure 168/81, O2 saturation 93%. HEENT: Atraumatic, normocephalic. Pupils equal and reactive to light. Extraocular movements intact. Buccal mucosa is fair. Neck is supple. No goiter or lymphadenopathy. Abdomen is soft, but distended. Bowel sounds are positive and there is no tenderness. No guarding or rigidity. EXTREMITIES: No edema, clubbing, cyanosis. NEUROLOGICAL: Cranial nerves 2-12 grossly intact. No gross motor or sensory deficit. LABS: CBC: White blood count of 9.5, hemoglobin 12.4, hematocrit 38.8 and platelet count of 247. Chemical profile: Sodium 139, potassium 3.7, chloride 104, bicarb 26, BUN 11, creatinine of 0.73, and glucose 89. ASSESSMENT: 1. Acute diverticulitis. 2. Abdominal pain secondary to diverticulitis and constipation. 3. Abdominal distention, rule out bowel obstruction. 4. Asymptomatic bacteriuria. Cultures pending. 5. Essential hypertension. 6. Hyperlipidemia. The patient the patient remains on a clear liquid diet, which she is tolerating well, not causing her any abdominal pain and not eating much secondary to no appetite. Otherwise, remains stable on Levaquin and Flagyl. The patient's abdominal distention subjectively is worse compared to yesterday. The patient will be monitored closely and if it continues to get worse, then we will check abdominal x-ray. Urine culture shows about 10,000-49,000 of genital mandie. No further recommendations for treatment of UTI. We will continue to monitor I's and O's, renal function, electrolytes. Continue with GI and DVT prophylaxis. Continue current treatment. Discharge when clinically stable. MMODL / IJN: [id number] /
[2017-10-26] MEDS: ATORVASTATIN 10 MG TAB PO SCH (21:28)
[2017-10-27] MEDS: metroNIDAZOLE-NS PMX 500 MG in SALINE 1 100ML.BAG IVPB SCH ×2 (01:15→09:18)
[2017-10-27] MEDS: SODIUM CHLORIDE 0.9% 1,000 ML IV SCH (06:09)
[2017-10-27 06:56] LABS: Basophils % (A) 0 %; Eosinophils # (A) 0.3 k/uL (0-0.7); Eosinophils % (A) 3 %; HCT 41.7 % (34.0-46.0); HGB 12.7 gm/dL (11.4-16.0); Lymphocytes # (A) 0.8 k/uL (1.0-4.8); Lymphocytes % (A) 9 %; MCH 29.9 pg (25.0-35.0); MCHC 30.5 g/dL (31.0-37.0); MCV 98.3 fL (80.0-100.0); Mean Platelet Volume 7.5; Monocytes # (A) 0.6 k/uL (0-1.0); Monocytes % (A) 7 %; Neutrophils % (A) 78 %; Platelet Count 280 k/uL (150-450); RBC 4.24 m/uL (3.80-5.40); RDW 12.5 % (11.5-15.5); WBC 8.9 k/uL (3.8-10.6)
[2017-10-27 07:13] LABS: Anion Gap 12 mmol/L; Blood Urea Nitrogen 10 mg/dL (7-17); Calcium 8.8 mg/dL (8.4-10.2); Carbon Dioxide 27 mmol/L (22-30); Chloride 102 mmol/L (98-107); Glucose 111 mg/dL (74-99); Potassium 3.6 mmol/L (3.5-5.1); Sodium 141 mmol/L (137-145)
[2017-10-27] MEDS: LISINOPRIL 20 MG TAB PO SCH (09:15)
[2017-10-27] MEDS: PANTOPRAZOLE 40 MG/10 ML VIAL IVP SCH (09:15)
[2017-10-27] MEDS: ENOXAPARIN 40 MG/0.4 ML SYRINGE SQ SCH (09:15)
[2017-10-27] MEDS: NYSTATIN 100,000 UNIT/ML SUSP 500,000 UNIT/5 ML CUP PO SCH ×4 (09:16→21:29)
[2017-10-27] MEDS: MUPIROCIN 2% OINT 22 GM TUBE TOPICAL SCH ×2 (09:16→21:29)
[2017-10-27] MEDS: amLODIPine 5 MG TAB PO SCH (09:27)
--- NOTE | 2017-10-27 09:58 | P.PN ---
Subjective Progress Note Date: 10/27/17 Principal diagnosis: Diverticulitis The patient is feeling better today. Would like more to eat. Is having less pain. Passing some gas and had a bowel movement. Wants to walk more, but feels a little unsteady. Says she uses a walker at home. Objective - Vital Signs Vital signs: Vital Signs Temp 97.9 F 10/27/17 09:13 Pulse 73 10/27/17 08:10 Resp 20 10/27/17 08:10 BP 147/85 10/27/17 08:10 Pulse Ox 97 10/27/17 08:10 Intake & Output 10/26/17 10/27/17 10/27/17 18:59 06:59 18:59 Intake Total 650 Balance 650 Weight 67 kg 67 kg Intake: Oral 650 Other: Voiding Method Toilet # Voids 2 2 # Bowel Movements 1 - Constitutional General appearance: Present: cooperative, no acute distress - Respiratory Respiratory: bilateral: CTA - Cardiovascular Rhythm: regular - Gastrointestinal General gastrointestinal: Present: distended (less so than yesterday), normal bowel sounds, tenderness (minimal today. Improved from yesterday) - Labs CBC & Chem 7: 10/27/17 06:15 10/27/17 06:15 Labs: Abnormal Lab Results - Last 24 Hours (Table) 10/27/17 10/27/17 Range/Units 06:15 06:15 MCHC 30.5 L (31.0-37.0) g/dL Lymphocytes # 0.8 L (1.0-4.8) k/uL Glucose 111 H (74-99) mg/dL Assessment and Plan (1) Acute diverticulitis Current Visit: Yes Status: Acute Code(s): K57.92 - DVTRCLI OF INTEST, PART UNSP, W/O PERF OR ABSCESS W/O BLEED SNOMED Code(s): 234552047 (2) Constipation Current Visit: Yes Status: Acute Code(s): K59.00 - CONSTIPATION, UNSPECIFIED SNOMED Code(s): 14000380 Plan: Will advance diet. Saline lock IV. Have a walker available for safety. Progressing well. If she continues to do will with regular diet, she could be discharged in the next day or two. She should have a colonoscopy done in about 4-6 weeks to rule out other pathology. I spoke with daughter via phone.
[2017-10-27] MEDS: DOCUSATE 100 MG CAP PO SCH (11:57)
[2017-10-27] MEDS: LEVOFLOXACIN 750 MG TAB PO SCH (16:17)
[2017-10-27] MEDS: metroNIDAZOLE 500 MG TAB PO SCH (16:17)
[2017-10-27] MEDS: ATORVASTATIN 10 MG TAB PO SCH (21:29)
[2017-10-28] MEDS: ACETAMINOPHEN TAB 325 MG TAB PO PRN
[2017-10-28] MEDS: metroNIDAZOLE 500 MG TAB PO SCH ×4 (00:02→22:37)
[2017-10-28] MEDS: SODIUM CHLORIDE 0.9% 1,000 ML IV SCH ×3 (04:10→22:39)
--- NOTE | 2017-10-28 06:10 | PN ---
PROGRESS NOTE DATE OF SERVICE: 10/27/17 The patient claims she has been much better today. Patient did have some salad just a little while ago, but feels a little queasy and a little crampy. PHYSICAL EXAMINATION: VITAL SIGNS: Temperature 97.9, pulse 78, respiration 20, blood pressure 137/85 HEENT: Atraumatic, normocephalic. Pupils equal and reactive to light. Extraocular movements intact. Buccal mucosa is moist. Neck is supple. No goiter or lymphadenopathy. JVD is negative. No carotid bruit heard. Lungs are clear to auscultate. No rales, rhonchi, or wheezes. Heart is regular rate and rhythm without any murmurs or gallop rhythm. Abdomen is soft. Mild distention. Bowel sounds are positive. LAB: White blood count 8.9, hemoglobin 12.7, hematocrit 41.7, platelet count of 280. Chemical profile: Sodium 131, chloride 102, bicarb 27, BUN 10, creatinine 0.7, glucose 111. ASSESSMENT AND PLAN: 1. Acute diverticulitis; plan is to advance the patient diet and Hep-Lock saline. Increased patient activity. Continue to progress the diet to regular over next 24- 48 hours. The patient is also recommended a colonoscopy in about 4-6 weeks done as an outpatient. All of the this was discussed in great detail with the patient's daughter at the bedside. 2. Abdominal pain secondary to diverticulitis and constipation. 3. Abdominal distention, abdominal ileus. 4. Asymptomatic bacteriuria. Culture is pending. 5. Essential hypertension. 6. Hyperlipidemia. 7. Deep vein thrombosis and GI prophylaxis. MMODL / IJN: [id number] / MTDD
[2017-10-28] MEDS: PANTOPRAZOLE 40 MG TABLET PO SCH (07:55)
[2017-10-28] MEDS: DOCUSATE 100 MG CAP PO SCH (08:59)
[2017-10-28] MEDS: ENOXAPARIN 40 MG/0.4 ML SYRINGE SQ SCH (08:59)
[2017-10-28] MEDS: LISINOPRIL 20 MG TAB PO SCH (08:59)
[2017-10-28] MEDS: NYSTATIN 100,000 UNIT/ML SUSP 500,000 UNIT/5 ML CUP PO SCH ×4 (08:59→19:46)
[2017-10-28] MEDS: amLODIPine 5 MG TAB PO SCH (08:59)
[2017-10-28] MEDS: MUPIROCIN 2% OINT 22 GM TUBE TOPICAL SCH ×2 (11:39→19:46)
--- NOTE | 2017-10-28 12:38 | P.PN ---
Subjective Progress Note Date: 10/28/17 Principal diagnosis: Diverticulitis The patient is starting to pass quite a bit of gas. No BM today. No nausea or vomiting. Taking liquids well, but having some cramps and discomfort when eating solids. Still feels very weak. Doing better walking with walker. Doesn 't feel ready to go home yet Objective - Vital Signs Vital signs: Vital Signs Temp 97.7 F 10/28/17 07:06 Pulse 65 10/28/17 07:06 Resp 20 10/28/17 07:06 BP 160/80 10/28/17 07:06 Pulse Ox 96 10/28/17 07:06 Intake & Output 10/27/17 10/28/17 10/28/17 18:59 06:59 18:59 Intake Total 600 Balance 600 Intake: Oral 600 Other: Voiding Method Toilet Toilet Toilet # Voids 3 3 - Constitutional General appearance: Present: cooperative, no acute distress - Respiratory Respiratory: bilateral: CTA - Cardiovascular Rhythm: regular - Gastrointestinal General gastrointestinal: Present: normal bowel sounds, soft (Slight distention , but improving. Much less tympany). Absent: tenderness - Labs CBC & Chem 7: 10/27/17 06:15 10/27/17 06:15 Assessment and Plan (1) Acute diverticulitis Current Visit: Yes Status: Acute Code(s): K57.92 - DVTRCLI OF INTEST, PART UNSP, W/O PERF OR ABSCESS W/O BLEED SNOMED Code(s): 303482054 (2) Constipation Current Visit: Yes Status: Acute Code(s): K59.00 - CONSTIPATION, UNSPECIFIED SNOMED Code(s): 08876342 Plan: Clinically improving. I explained to the patient and daughter (via phone) that when solids are started it is normal not to be able to take in much and get some cramps. Will encourage ambulation. Monitor oral intake. May be ready for discharge tomorrow.
[2017-10-28] MEDS ORDERED: MAGNESIUM HYDROXIDE 2,400 MG/10 ML CUP PO PRN (12:39)
[2017-10-28] MEDS: LEVOFLOXACIN 750 MG TAB PO SCH (17:09)
[2017-10-28] MEDS: ATORVASTATIN 10 MG TAB PO SCH (19:46)
--- NOTE | 2017-10-28 23:00 | PN ---
PROGRESS NOTE DATE OF SERVICE: 10/28/2017. HISTORY: The patient was seen and examined by the bedside. Patient does complain of some crampy discomfort after eating solids. No nausea, vomiting, no bowel movement yet. PHYSICAL EXAM: VITAL SIGNS: Temperature 97.7, pulse 65, respirations 20, blood pressure 162/80, O2 saturation 96%. HEENT: Atraumatic, normocephalic. Pupils equal and reactive to light. Extraocular movements intact. Buccal mucosa is moist. NECK: Supple. No goiter or lymphadenopathy. JVD is negative. No carotid bruit heard. LUNGS: Clear to auscultation. No rales, rhonchi, or wheezes. HEART: Regular rate and rhythm without any murmurs or gallop rhythm. ABDOMEN: Soft, nontender, nondistended. Bowel sounds positive. EXTREMITIES: No edema, clubbing, or cyanosis. NEUROLOGIC: Cranial nerves grossly intact. No gross motor or sensory deficit. LAB DATA: White blood count of 8.9, hemoglobin 12.7, hematocrit 41.7, platelet count of 280. Sodium 141, potassium 3.6, chloride 102, bicarb 27, BUN 10, creatinine 0.5, glucose 111. ASSESSMENT: 1. Acute diverticulitis. The patient patient has been started on a semi-solid diet and plan is to advance as tolerated. The patient does complain of some abdominal discomfort. Surgical services is following too. We will continue to advance diet slowly and possible discharge once the patient is able to tolerate diet. 2. Abdominal pain secondary to diverticulitis and constipation. 3. Abdominal distention and abdominal ileus. 4. Asymptomatic bacteriuria. The patient's urine culture is negative. No use of IV antibiotics. 5. Essential hypertension, currently stable. 6. Hyperlipidemia. Controlled with home medications. Continue with DVT and GI prophylaxis. MMODL / IJN: [id number] /
[2017-10-29 06:49] VITALS: RESP 16
[2017-10-29] MEDS: LISINOPRIL 20 MG TAB PO SCH (09:27)
[2017-10-29] MEDS: ENOXAPARIN 40 MG/0.4 ML SYRINGE SQ SCH (09:27)
[2017-10-29] MEDS: metroNIDAZOLE 500 MG TAB PO SCH (09:27)
[2017-10-29] MEDS: NYSTATIN 100,000 UNIT/ML SUSP 500,000 UNIT/5 ML CUP PO SCH ×2 (09:27→13:30)
[2017-10-29] MEDS: PANTOPRAZOLE 40 MG TABLET PO SCH (09:28)
[2017-10-29] MEDS: DOCUSATE 100 MG CAP PO SCH (09:28)
[2017-10-29] MEDS: amLODIPine 5 MG TAB PO SCH (09:28)
[2017-10-29] MEDS: MUPIROCIN 2% OINT 22 GM TUBE TOPICAL SCH (09:29)
[2017-10-29] MEDS: SODIUM CHLORIDE 0.9% 1,000 ML IV SCH (09:30)
--- NOTE | 2017-10-29 11:19 | P.PN ---
Subjective Progress Note Date: 10/29/17 Principal diagnosis: Diverticulitis The patient is feeling better today. She had a large bowel movement through the night. She is starting to take some food. No nausea or vomiting. She is feeling somewhat stronger. Wants to go home today Objective - Vital Signs Vital signs: Vital Signs Temp 98.0 F 10/29/17 06:48 Pulse 87 10/29/17 06:48 Resp 16 10/29/17 08:19 BP 117/72 10/29/17 06:48 Pulse Ox 96 10/29/17 06:48 Intake & Output 10/28/17 10/29/17 10/29/17 18:59 06:59 18:59 Intake Total 300 Balance 300 Weight 67 kg Intake: Oral 300 Other: Voiding Method Toilet Toilet Toilet # Voids 2 2 1 - Constitutional General appearance: Present: cooperative, no acute distress - Respiratory Respiratory: bilateral: CTA - Gastrointestinal General gastrointestinal: Present: normal bowel sounds, soft (Minimal tympany to percussion) - Labs CBC & Chem 7: 10/27/17 06:15 10/27/17 06:15 Assessment and Plan (1) Acute diverticulitis Current Visit: Yes Status: Acute Code(s): K57.92 - DVTRCLI OF INTEST, PART UNSP, W/O PERF OR ABSCESS W/O BLEED SNOMED Code(s): 644104277 (2) Constipation Current Visit: Yes Status: Acute Code(s): K59.00 - CONSTIPATION, UNSPECIFIED SNOMED Code(s): 07406414 Plan: Surgically stable for discharge on oral antibiotics. I recommended a low fiber diet for 1-2 weeks while the inflammation heals. Follow-up colonoscopy in 4-6 weeks as outpatient.
[2017-10-29 15:24] VITALS: BP 110/61; PULSE 65; TEMP 97.5
[2017-10-29 15:42] VITALS: BMI 23.8
--- NOTE | 2017-11-25 22:21 | DS ---
DISCHARGE SUMMARY ADMISSION DIAGNOSES: 1. Acute diverticulitis. 2. Abdominal pain secondary to diverticulitis. 3. Asymptomatic bacteriuria. 4. Essential hypertension. 5. Hyperlipidemia. BRIEF HISTORY: This is a 77-year-old female patient who presented to the emergency room with a complaint of abdominal pain and constipation. The patient claims she was having diarrhea. For a week she took antidiarrheal medications after which she became constipated for several days. She went to the PCP earlier in the week, was prescribed different medication for constipation, which it did not help. The abdominal pain got worse so she decided to come to the ED. PAST MEDICAL HISTORY: 1. Hypertension. 2. Hyperlipidemia. 3. Osteoarthritis. 4. Constipation. ADMIT MEDICATIONS: The patient is on benazepril 20 mg daily, Mevacor 40 mg p.o. q.h.s., milk of magnesia p.r.n., Metamucil 6 g p.o. q.h.s., amlodipine 5 mg p.o. daily. ALLERGIES: She has no known drug allergies. BRIEF HOSPITAL COURSE: The patient was admitted to the general medical floor. Surgical consultation was done. Patient was started on Levaquin and Flagyl with clear liquid diet. Urine culture was obtain. The patient was seen by Surgery. She was continued on clear liquid diet. She was also started on IV Protonix 40 mg daily for DVT prophylaxis. The patient did show improvement with these treatments. The patient was also seen by GI and was recommended colonoscopy in about 4 to 6 weeks time as an outpatient. The patient's abdominal pain improved. She did respond very well to an antibiotic treatment, did not have any further complications. Her diet was gradually increased and she did not have any problems with that. Patient's urine culture came back negative. IV antibiotics were scheduled around diverticulitis. No need was felt to treat UTI. The patient did not have any further complications. She tolerated advanced diet very well. She was then discharged home with the plan to gradually advance the diet towards regular and follow up with the primary care physician. PHYSICAL EXAMINATION: On discharge, the patient was awake, alert and oriented. VITAL SIGNS: Temperature of 99.1, pulse 89, respirations 16, blood pressure 144/74. HEENT: Atraumatic, normocephalic. Pupils equal and reactive to light. Extraocular movements intact. Buccal mucosa moist. NECK: Supple. No goiter or lymphadenopathy. JVD is negative. No carotid bruit heard. LUNGS: Clear to auscultate. No rales, rhonchi, or wheezes. HEART: Regular rate and rhythm without any murmurs or gallop rhythm. ABDOMEN: Soft, minimal diffuse tenderness. Bowel sounds positive. EXTREMITIES: No edema, clubbing cyanosis. DISCHARGE MEDICATIONS: 1. Levaquin 750 mg daily for 7 days. 2. Flagyl 500 mg q.8 hours for 7 days. 3. Benazepril 20 mg daily. 4. Mevacor 40 mg at bedtime. 5. Milk of magnesia 2400 mg q.h.s. p.r.n. 6. Norvasc 5 mg daily. 7. Metamucil 6 g p.o. q.h.s. The patient was advised close follow up with the surgical team for possible EGD and follow up with the primary care physician. MMODL / ESMEN: [id number] /
== END 2017-10-29 15:55 | disposition home or self-care (01) | DRG 392 ==
LOC: EC 12:00 → 3SUR 16:17
PROVIDERS: ADMIT Family Medicine; ATTEND Family Medicine
DX: K57.32 Diverticulitis of large intestine without perforation or abscess without bleeding (principal); K56.7 Ileus, unspecified; R18.8 Other ascites; K82.1 Hydrops of gallbladder; F03.90 Unspecified dementia, unspecified severity, without behavioral disturbance, psychotic disturbance, mood disturbance, and anxiety; E78.5 Hyperlipidemia, unspecified; I10 Essential (primary) hypertension; K80.20 Calculus of gallbladder without cholecystitis without obstruction; M19.90 Unspecified osteoarthritis, unspecified site; K59.00 Constipation, unspecified; Z79.899 Other long term (current) drug therapy; Z85.3 Personal history of malignant neoplasm of breast; Z85.528 Personal history of other malignant neoplasm of kidney; Z90.710 Acquired absence of both cervix and uterus; Z90.5 Acquired absence of kidney
CPT/HCPCS: 36415; 74022; 74177; 80048; 80053; 81001; 82150; 82550; 82553; 83605; 83690; 83735; 84100; 85025; 87086; 93005; 96361; 96365; 99285

== ENCOUNTER 2017-12-19 10:56 | Day surgery (SDC) | payer MEDICARE, BC ==
[2017-12-17 09:16] VITALS: BMI 21.7
[~2017-12-19 10:56] MED LIST: LACTATED RINGERS 1,000 ML IV SCH
[2017-12-19 11:58] VITALS: RESP 16; TEMP 97.5
[2017-12-19] MEDS ORDERED: LIDOCAINE 1% 20 ML VIAL (10MG/ML) FOR IV START INTRADERMA ONE (12:01)
--- NOTE | 2017-12-19 12:31 | P.GSHP ---
History of Present Illness H&P Date: 12/19/17 Chief Complaint: Change in bowel habits Patient here today for colonoscopy. She was recently hospitalized with diverticulitis and constipation. Still having issues with constipation. Last colonoscopy 2002. Past Medical History Past Medical History: Cancer, Hypertension, Skin Disorder Additional Past Medical History / Comment(s): varicose veins, recent bowel blockage, red itchy rash on arms, hx breast cancer, hx kidney cancer History of Any Multi-Drug Resistant Organisms: None Reported Past Surgical History: Breast Surgery, Hernia Repair, Hysterectomy, Tonsillectomy Additional Past Surgical History / Comment(s): removal of kidney for cancer, left breast lumpectomy, surgery on colon years ago(twisted colon) Past Anesthesia/Blood Transfusion Reactions: Previous Problems w/ Anesthesia, Motion Sickness, Postoperative Nausea & Vomiting (PONV) Additional Past Anesthesia/Blood Transfusion Reaction / Comment(s): after hernia sx pt coded coming out of sx-ended up in icu for a week Smoking Status: Never smoker - Past Family History Mother Family Medical History: Cancer Additional Family Medical History / Comment(s): colon cancer Father Additional Family Medical History / Comment(s): emphysema-non smoker Medications and Allergies Home Medications Medication Instructions Recorded Confirmed Type Benazepril HCl 20 mg PO DAILY 10/24/17 12/19/17 History Lovastatin [Mevacor] 40 mg PO HS 10/24/17 12/19/17 History amLODIPine [Norvasc] 5 mg PO DAILY 10/24/17 12/19/17 History Cholecalciferol [Vitamin D3] 1,000 unit PO DAILY 12/17/17 12/19/17 History Cyanocobalamin [Vitamin B-12] 500 mcg PO DAILY 12/17/17 12/19/17 History Allergies Allergy/AdvReac Type Severity Reaction Status Date / Time No Known Allergies Allergy Verified 12/17/17 09:02 Surgical - Exam Vital Signs Temp Pulse Resp BP Pulse Ox 97.5 F L 62 16 169/75 92 L 12/19/17 11:51 12/19/17 11:51 12/19/17 11:51 12/19/17 11:51 12/19/17 11:51 Physical exam: General: Well-developed, well-nourished HEENT: Normocephalic, sclerae nonicteric Abdomen: Nontender, nondistended Extremities: No edema Neuro: Alert and oriented Assessment and Plan (1) Change in bowel habits Narrative/Plan: Will proceed with colonoscopy at this time. Current Visit: Yes Status: Acute Code(s): R19.4 - CHANGE IN BOWEL HABIT SNOMED Code(s): 942615629
[2017-12-19] MEDS ORDERED: PROPOFOL 10 MG/ML 20 ML VIAL IV ONE (12:36)
[2017-12-19] MEDS ORDERED: LIDOCAINE 1% INJ 10MG/ML (20 ML MDV) ONE (12:36)
[2017-12-19 13:38] VITALS: BP 156/79; PULSE 54
--- NOTE | 2017-12-19 13:41 | P.PCN ---
Date of Procedure: 12/19/17 Procedure(s) Performed: PREOPERATIVE DIAGNOSIS: Change in bowel habits, constipation, diverticulitis POSTOPERATIVE DIAGNOSIS: Diverticulosis with diverticulitis, tortuous colon, unable to reach cecum PROCEDURE: Colonoscopy with biopsy ANESTHESIA: MAC SURGEON: Fer Dey M.D. SPECIMENS: My: ENDOSCOPIC PROCEDURE: The patient was placed on the endoscopy table in the left decubitus position. The Olympus colonoscope was inserted into the anus and passed under direct visualization to the region of the hepatic flexure. I was unable to advance the scope further because of tortuosity throughout the sigmoid colon. Navigation through the sigmoid colon was extremely difficult. The transverse and descending colon appeared normal. In the sigmoid there was extensive diverticulosis. There was one area in particular where there is some inflammatory tissue that likely represented granulation tissue from chronic diverticulitis. A biopsy was taken of that area. The remainder of the sigmoid and rectum appeared normal. Digital rectal examination was normal. The patient was taken to the recovery room in stable condition per anesthesia guidelines. RECOMMENDATIONS: Operative findings will be discussed with the family. The patient has been reluctant in the past to have any invasive procedures. We'll discuss options of elective sigmoid colectomy versus resumption of antibiotics and observation. Proximal colon was not visualized during this procedure. Barium enema will be offered however I anticipate the patient will refuse.
== END 2017-12-19 14:14 | disposition home or self-care (01) ==
LOC: ORWHC2ENDO 10:56
PROVIDERS: ATTEND Surgery
DX: K57.30 Diverticulosis of large intestine without perforation or abscess without bleeding (principal); K57.32 Diverticulitis of large intestine without perforation or abscess without bleeding; Q43.8 Other specified congenital malformations of intestine; I10 Essential (primary) hypertension; E78.5 Hyperlipidemia, unspecified; I83.90 Asymptomatic varicose veins of unspecified lower extremity; Z79.899 Other long term (current) drug therapy; Z85.3 Personal history of malignant neoplasm of breast; Z85.528 Personal history of other malignant neoplasm of kidney; Z90.5 Acquired absence of kidney
CPT/HCPCS: 88305; 45380; J2001; J2704

== ENCOUNTER 2020-04-04 15:14 | Emergency (ER) | payer MEDICARE, BC ==
[2020-04-04 15:25] VITALS: BP 163/90; PULSE 66; RESP 16; TEMP 99.4
[2020-04-04] MEDS ORDERED: SODIUM CHLORIDE 0.9% 500 ML 500 ML IV STA (15:42)
[2020-04-04] MEDS ORDERED: KETOROLAC 30 MG/ML 1 ML VIAL IVP STA (15:43)
--- NOTE | 2020-04-04 15:46 | ED ---
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 Patient states she has had intermittent abdominal pain over the past 2 months but states over the 2 days it has worsened. She describes the pain is mostly on the right side, upper and lower quadrant. She does admit to history of extensive hernia repair, no other abdominal surgeries. She states she's been having irregular bowel movements. She denies any dysuria or increasing frequency. She denies any nausea or vomiting. She states she does have an appointment with her PCP tomorrow but felt like the pain was increasing so she wanted to be seen today. Patient's daughter is here with her now and is helping with history. There is been no fevers or chills. No chest pain or shortness of breath. There are no further complaints at this time. Upon arrival to the ER, her vital signs are stable. - Related Data Home Medications Medication Instructions Recorded Confirmed Benazepril HCl 20 mg PO DAILY 10/24/17 12/19/17 Lovastatin [Mevacor] 40 mg PO HS 10/24/17 12/19/17 amLODIPine [Norvasc] 5 mg PO DAILY 10/24/17 12/19/17 Cholecalciferol [Vitamin D3] 1,000 unit PO DAILY 12/17/17 12/19/17 Cyanocobalamin [Vitamin B-12] 500 mcg PO DAILY 12/17/17 12/19/17 Previous Rx's Medication Instructions Recorded Ciprofloxacin HCl [Cipro] 500 mg PO BID 7 Days #14 tab 12/19/17 Allergies Allergy/AdvReac Type Severity Reaction Status Date / Time No Known Allergies Allergy Verified 04/04/20 15:25 Review of Systems ROS Statement: Those systems with pertinent positive or pertinent negative responses have been documented in the HPI. ROS Other: All systems not noted in ROS Statement are negative. Past Medical History Past Medical History: Cancer, Hypertension, Skin Disorder Additional Past Medical History / Comment(s): varicose veins, recent bowel blockage, red itchy rash on arms, hx breast cancer, hx kidney cancer History of Any Multi-Drug Resistant Organisms: None Reported Past Surgical History: Breast Surgery, Hernia Repair, Hysterectomy, Tonsillectomy Additional Past Surgical History / Comment(s): removal of kidney for cancer, left breast lumpectomy, surgery on colon years ago(twisted colon) Past Anesthesia/Blood Transfusion Reactions: Previous Problems w/ Anesthesia, Motion Sickness, Postoperative Nausea & Vomiting (PONV) Additional Past Anesthesia/Blood Transfusion Reaction / Comment(s): after hernia sx pt coded coming out of sx-ended up in icu for a week Past Psychological History: No Psychological Hx Reported Smoking Status: Never smoker Past Alcohol Use History: None Reported Past Drug Use History: None Reported - Past Family History Mother Family Medical History: Cancer Additional Family Medical History / Comment(s): colon cancer Father Additional Family Medical History / Comment(s): emphysema-non smoker General Exam - General Exam Comments Initial Comments: GENERAL: Patient is well-developed and well-nourished. Patient is nontoxic and in no acute distress. HEAD: Atraumatic, normocephalic. EYES: Pupils equal round and reactive to light, extraocular movements intact, sclera anicteric, conjunctiva are normal. Eyelids were unremarkable. ENT: TMs normal, nares patent, oropharynx clear without exudates. Moist mucous membranes. NECK: Normal range of motion, supple without lymphadenopathy or JVD. LUNGS: Unlabored respirations. Breath sounds clear to auscultation bilaterally and equal. No wheezes rales or rhonchi. HEART: Regular rate and rhythm without murmurs, rubs or gallops. ABDOMEN: Tender to palpation in the right side of the abdomen, upper and lower. Abdomen seems slightly distended. Soft, normoactive bowel sounds. No guarding, no rebound. No masses appreciated. : Deferred MUSCULOSKELETAL: Normal extremities with adequate strength and normal range of motion, no pitting or edema. No clubbing or cyanosis. NEUROLOGICAL: Patient is alert and oriented x 3. Motor and sensory are also intact. Normal speech, normal gait. PSYCH: Normal mood, normal affect. SKIN: Warm, Dry, normal turgor, no rashes or lesions noted. Limitations: no limitations Course Vital Signs 04/04/20 15:18 Temperature 99.4 F Pulse Rate 66 Respiratory 16 Rate Blood Pressure 163/90 O2 Sat by Pulse 97 Oximetry Medical Decision Making - Medical Decision Making Patient is an 79-year-old female with history of hypertension, one kidney, presenting for abdominal pain in the right side increasing over the past 2 days. Vital signs are stable. Lab work shows slightly elevated white count of 15.3, no other acute findings. Lactic acid is normal at 1.5, lipase is normal. U rine shows no evidence of infection. Computed tomography scan shows a chronic dilated sigmoid colon with fecal impaction, this was present on old CT as well. There is some mild presacral edema, cholelithiasis is unchanged. Patient has been given small amount of pain medicine, fluids. She reports improvement in her symptoms. Patient was given an enema in the ER and had a moderate size bowel movement. Patient states she does have some mild relief of symptoms. She is stable for discharge. She will start a trial of MiraLAX for regulation. She'll follow-up with her PCP. Patient and patient's daughters in agreement with this plan of care. Return parameters were discussed with the patient she verbalized understanding. Case discussed with Dr. Foster. - Lab Data Result diagrams: 04/04/20 15:55 04/04/20 15:55 Lab Results 04/04/20 04/04/20 04/04/20 Range/Units 15:55 15:55 15:55 WBC 15.3 H (3.8-10.6) k/uL RBC 4.33 (3.80-5.40) m/uL Hgb 13.5 (11.4-16.0) gm/dL Hct 41.4 (34.0-46.0) % MCV 95.5 (80.0-100.0) fL MCH 31.2 (25.0-35.0) pg MCHC 32.7 (31.0-37.0) g/dL RDW 13.1 (11.5-15.5) % Plt Count 180 (150-450) k/uL Neutrophils % 92 % Lymphocytes % 3 % Monocytes % 4 % Eosinophils % 1 % Basophils % 0 % Neutrophils # 14.1 H (1.3-7.7) k/uL Lymphocytes # 0.5 L (1.0-4.8) k/uL Monocytes # 0.6 (0-1.0) k/uL Eosinophils # 0.1 (0-0.7) k/uL Basophils # 0.0 (0-0.2) k/uL PT 9.8 (9.0-12.0) sec INR 0.9 (<1.2) APTT 21.4 L (22.0-30.0) sec Sodium 135 L (137-145) mmol/L Potassium 4.2 (3.5-5.1) mmol/L Chloride 100 (98-107) mmol/L Carbon Dioxide 27 (22-30) mmol/L Anion Gap 8 mmol/L BUN 22 H (7-17) mg/dL Creatinine 0.83 (0.52-1.04) mg/dL Est GFR (CKD-EPI)AfAm 77 (>60 ml/min/1.73 sqM) Est GFR (CKD-EPI)NonAf 67 (>60 ml/min/1.73 sqM) Glucose 163 H (74-99) mg/dL Plasma Lactic Acid Titi (0.7-2.0) mmol/L Calcium 9.0 (8.4-10.2) mg/dL Total Bilirubin 1.3 (0.2-1.3) mg/dL AST 28 (14-36) U/L ALT 18 (4-34) U/L Alkaline Phosphatase 78 (38-126) U/L Total Protein 6.4 (6.3-8.2) g/dL Albumin 4.0 (3.5-5.0) g/dL Amylase 46 (30-110) U/L Lipase 78 (23-300) U/L Urine Color Urine Appearance (Clear) Urine pH (5.0-8.0) Ur Specific [place] (1.001-1.035) Urine Protein (Negative) Urine Glucose (UA) (Negative) Urine Ketones (Negative) Urine Blood (Negative) Urine Nitrite (Negative) Urine Bilirubin (Negative) Urine Urobilinogen (<2.0) mg/dL Ur Leukocyte Esterase (Negative) 04/04/20 04/04/20 Range/Units 15:55 17:47 WBC (3.8-10.6) k/uL RBC (3.80-5.40) m/uL Hgb (11.4-16.0) gm/dL Hct (34.0-46.0) % MCV (80.0-100.0) fL MCH (25.0-35.0) pg MCHC (31.0-37.0) g/dL RDW (11.5-15.5) % Plt Count (150-450) k/uL Neutrophils % % Lymphocytes % % Monocytes % % Eosinophils % % Basophils % % Neutrophils # (1.3-7.7) k/uL Lymphocytes # (1.0-4.8) k/uL Monocytes # (0-1.0) k/uL Eosinophils # (0-0.7) k/uL Basophils # (0-0.2) k/uL PT (9.0-12.0) sec INR (<1.2) APTT (22.0-30.0) sec Sodium (137-145) mmol/L Potassium (3.5-5.1) mmol/L Chloride (98-107) mmol/L Carbon Dioxide (22-30) mmol/L Anion Gap mmol/L BUN (7-17) mg/dL Creatinine (0.52-1.04) mg/dL Est GFR (CKD-EPI)AfAm (>60 ml/min/1.73 sqM) Est GFR (CKD-EPI)NonAf (>60 ml/min/1.73 sqM) Glucose (74-99) mg/dL Plasma Lactic Acid Titi 1.5 (0.7-2.0) mmol/L Calcium (8.4-10.2) mg/dL Total Bilirubin (0.2-1.3) mg/dL AST (14-36) U/L ALT (4-34) U/L Alkaline Phosphatase (38-126) U/L Total Protein (6.3-8.2) g/dL Albumin (3.5-5.0) g/dL Amylase (30-110) U/L Lipase (23-300) U/L Urine Color Yellow Urine Appearance Clear (Clear) Urine pH 7.0 (5.0-8.0) Ur Specific [place] 1.027 (1.001-1.035) Urine Protein Negative (Negative) Urine Glucose (UA) Negative (Negative) Urine Ketones Negative (Negative) Urine Blood Negative (Negative) Urine Nitrite Negative (Negative) Urine Bilirubin Negative (Negative) Urine Urobilinogen <2.0 (<2.0) mg/dL Ur Leukocyte Esterase Negative (Negative) Disposition Clinical Impression: Abdominal pain, Constipation Disposition: HOME SELF-CARE Condition: Stable Instructions (If sedation given, give patient instructions): Constipation (ED) Additional Instructions: Please return to the Emergency Department if symptoms worsen or any other concerns. Trial of MiraLAX daily for 1-2 weeks to help with regularity. Increase water intake as well. Follow-up with PCP. Is patient prescribed a controlled substance at d/c from ED?: No Referrals: Ashlee Dey MD [Primary Care Provider] - 1-2 days
[2020-04-04 16:11] LABS: Basophils % (A) 0 %; Eosinophils # (A) 0.1 k/uL (0-0.7); Eosinophils % (A) 1 %; HCT 41.4 % (34.0-46.0); HGB 13.5 gm/dL (11.4-16.0); Lymphocytes # (A) 0.5 k/uL (1.0-4.8); Lymphocytes % (A) 3 %; MCH 31.2 pg (25.0-35.0); MCHC 32.7 g/dL (31.0-37.0); MCV 95.5 fL (80.0-100.0); Mean Platelet Volume 8.3; Monocytes # (A) 0.6 k/uL (0-1.0); Monocytes % (A) 4 %; Neutrophils # (A) 14.1 k/uL (1.3-7.7); Neutrophils % (A) 92 %; Platelet Count 180 k/uL (150-450); RBC 4.33 m/uL (3.80-5.40); RDW 13.1 % (11.5-15.5); WBC 15.3 k/uL (3.8-10.6)
[2020-04-04 16:23] LABS: Potassium 4.2 mmol/L (3.5-5.1); Total Bilirubin 1.3 mg/dL (0.2-1.3); Total Protein 6.4 g/dL (6.3-8.2)
[2020-04-04 16:28] LABS: INR 0.9 (<1.2); Partial Thromboplastin Time 21.4 sec (22.0-30.0); Prothrombin Time 9.8 sec (9.0-12.0)
--- NOTE | 2020-04-04 17:22 | CT ---
EXAMINATION TYPE: CT abdomen pelvis w con DATE OF EXAM: 04/04/2020 COMPARISON: 10/24/2017 HISTORY: abdominal pain, hx of kidney ca CT DLP: 869.2 mGycm Automated exposure control for dose reduction was used. CONTRAST: Performed with IV Contrast, patient injected with 100v mL of Isovue 300. Multiple axial sections were obtained from the diaphragm to the floor the pelvis with IV contrast. FINDINGS: There is some patchy atelectasis at the lung bases. Heart is slightly enlarged. There is no pericardi al effusion. There is no pleural effusion. Liver shows no focal defect. There are numerous large calcified gallstones. The bile ducts are not di lated. Gallbladder has normal size. Spleen is intact. Stomach is intact. There is no evidence of panc reatic mass. There is no adrenal mass. Left kidney is absent. There is apparent left nephrectomy. Right kidney bela ws satisfactory contrast opacification. There is no hydronephrosis. Right ureter is not dilated. Abdo levar aorta is atheromatous. There is no retroperitoneal adenopathy. Bladder distends smoothly. There is retained fecal material in the sigmoid colon which is somewhat dilated. Sigmoid colon measures up to 8 cm in diameter. There is presacral edema. There is hysterectomy. Appendix is not seen. There is no sign of thickened appendix. There is no mesenteric edema. There is no ascites or free air. There is mild lumbar levoscoliosis. Bony pelvis is intact. There is no lumbar compression fracture. T here is mild spondylotic changes in the lumbar spine. IMPRESSION: Chronic dilated sigmoid colon with fecal impaction. This is also present on old CT scan. No obstructi ng lesion seen. There is presacral edema that is a change compared to old exam. There is mild atelectasis at the lung bases that is new compared to old exam. Cholelithiasis unchanged.
[2020-04-04 17:57] LABS: Appearance,Urine Clear (Clear); Bilirubin,Urine Negative (Negative); Blood,Urine Negative (Negative); Color,Urine Yellow; Glucose,Urine (UA) Negative (Negative); Ketones,Urine Negative (Negative); Leukocyte Esterase,Urine Negative (Negative); Nitrite,Urine Negative (Negative); Protein,Urine Negative (Negative); Specific Gravity,Urine 1.027 (1.001-1.035); Urobilinogen,Urine <2.0 mg/dL (<2.0)
[2020-04-04] MEDS ORDERED: NA PHOS,M-B/NA PHOS,DI-BA 133 ML ENEMA RECTAL STA (18:07)
== END 2020-04-04 19:17 | disposition home or self-care (01) ==
LOC: EC 15:14
DX: K59.00 Constipation, unspecified (principal); D72.829 Elevated white blood cell count, unspecified; I10 Essential (primary) hypertension; Z85.3 Personal history of malignant neoplasm of breast; Z85.528 Personal history of other malignant neoplasm of kidney; Z98.890 Other specified postprocedural states; Z90.5 Acquired absence of kidney; Z79.899 Other long term (current) drug therapy; Z80.0 Family history of malignant neoplasm of digestive organs; Z90.710 Acquired absence of both cervix and uterus
CPT/HCPCS: 36415; 80053; 82150; 83605; 83690; 85025; 85610; 85730; 81003; 74177; 99284; 96374; J1885; Q9967